=== PATIENT | female | born 1980 | race Caucasian/White ===

== ENCOUNTER 2017-05-13 18:46 | Emergency (ER) | payer OTHER ==
[2017-05-13 18:50] VITALS: BP 115/77; PULSE 84; TEMP 98.7; BMI 23.8
[2017-05-13] MEDS ORDERED: diazePAM 5 MG TABLET PO ONE (20:40)
[2017-05-13] MEDS ORDERED: diazePAM 5 MG TABLET ONE (20:45)
--- NOTE | 2017-05-13 20:54 | PDOC ---
History of Present Illness - General Chief Complaint: Pain, Acute Stated Complaint: NECK PAIN Time Seen by Provider: 05/13/17 20:25 History Source: Patient Exam Limitations: No Limitations - History of Present Illness Initial Comments: 05/13/17 20:47 This is a 36yo woman with PMH of breast augmentation who presents today with right lateral neck pain x4 days. She states she awoke with the pain on the morning of 05/09. She denies trauma, fevers, headaches, photophobia, changes in vision, nausea or vomiting. PMD- none PMH- denies PSH- liposuction, breast augmentation Occupation- none Pain: P-right lateral neck Q- pulling R- no radiation S- 05/21 T- 4 days Occurred: reports: other (4 days) Pain Location: reports: neck Method of Injury: Yes: unknown Past History - Travel Traveled outside of the country in the last 30 days: No Close contact w/someone who was outside of country & ill: No - Past Medical History Allergies/Adverse Reactions: Allergies Allergy/AdvReac Type Severity Reaction Status Date / Time No Known Allergies Allergy Verified 05/13/17 18:50 Home Medications: Ambulatory Orders Acetaminophen [Tylenol] 325 mg PO ASDIR 05/13/17 Other medical history: denies - Surgical History Abdominal Surgery: Yes (liposuction) - Psycho/Social/Smoking Cessation Hx Suicidal Ideation: No Smoking History: Never smoked Review of Systems - Review of Systems Able to Perform ROS?: Yes Is the patient limited Sinhala proficient: No Constitutional: No: Symptoms Reported HEENTM: No: Symptoms Reported Respiratory: No: Symptoms reported Cardiac (ROS): No: Symptoms Reported ABD/GI: No: Symptoms Reported : No: Symptoms Reported Musculoskeletal: Yes: Neck Pain (right lateral) Integumentary: No: Symptoms Reported Neurological: No: Symptoms reported *Physical Exam - Vital Signs Last Vital Signs Temp Pulse Resp BP Pulse Ox 98.7 F 84 18 115/77 99 05/13/17 18:48 05/13/17 18:48 05/13/17 18:48 05/13/17 18:48 05/13/17 18:48 - Physical Exam General Appearance: Yes: Appropriately Dressed. No: Apparent Distress HEENT: positive: EOMI, JOE, Normal ENT Inspection Neck: positive: Trachea midline, Tender lateral (right). negative: Lymphadenopathy (R), Lymphadenopathy (L) Respiratory/Chest: positive: Lungs Clear, Normal Breath Sounds. negative: Respiratory Distress, Accessory Muscle Use Cardiovascular: positive: Regular Rhythm, Regular Rate, S1, S2. negative: Edema , JVD, Murmur Gastrointestinal/Abdominal: positive: Normal Bowel Sounds, Soft. negative: Tender, Organomegaly Musculoskeletal: positive: Normal Inspection. 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 She states she awoke with the pain on the morning of 05/09. She denies trauma, fevers, headaches, photophobia, changes in vision, nausea or vomiting. Full ROM of neck. EOMI. PERRLA, CN ii-xii intact. FROM of right shoulder. Denies numbness and tingling to right arm. P: cervical strain - valium 5mg PO - reassess 05/13/17 22:18 feels relief after valium. will discharge to home *DC/Admit/Observation/Transfer Diagnosis at time of Disposition: Cervical strain Qualifiers: Encounter type: initial encounter Qualified Code(s): S16.1XXA - Strain of muscle, fascia and tendon at neck level, initial encounter - Discharge Dispostion Disposition: HOME Condition at time of disposition: Stable Admit: No - Patient Instructions Printed Discharge Instructions: DI for Cervical Muscle Strain Additional Instructions: Take motrin for pain as directed by case folder's instructions. Apply warm, moist heat affected areas for 20 minutes at a time. Return to ER for numbness and tingling to hands, inability to move hands, or any other concerns. - Post Discharge Activity Work/School Note: Back to Work
== END 2017-05-13 22:44 | disposition home or self-care (01) ==
LOC: JERFT 18:46
DX: S16.1XXA Strain of muscle, fascia and tendon at neck level, initial encounter (principal); X50.1XXA Overexertion from prolonged static or awkward postures, initial encounter; Y93.89 Activity, other specified; Y92.032 Bedroom in apartment as the place of occurrence of the external cause
CPT/HCPCS: 99281-25

== ENCOUNTER 2019-10-19 16:09 | Emergency (ER) | payer OTHER ==
[2019-10-19 16:31] VITALS: BP 103/51; PULSE 75; TEMP 98.1; BMI 24.2
[2019-10-19] MEDS ORDERED: predniSONE 20 MG TABLET (UD) PO ONE (17:12)
[2019-10-19] MEDS ORDERED: CYCLOBENZAPRINE HCL 10 MG TABLET (FP) PO ONE (17:12)
--- NOTE | 2019-10-19 17:18 | PDOC ---
History of Present Illness - General Chief Complaint: Back Pain Stated Complaint: PAIN/LWR BACK AND LEG Time Seen by Provider: 10/19/19 17:03 History Source: Patient Exam Limitations: No Limitations - History of Present Illness Initial Comments: 10/19/19 17:14 Patient is a 39-year-old female who presents to the ED with 2 weeks of low back pain primarily left-sided. She states that the pain is in her left buttocks radiates down her entire left leg. She has had some numbness intermittently in her left lower extremity. The patient had a fall 2 years ago and has had intermittent back pain since then. She never followed up with an orthopedist. She did do physical therapy with relief of her pain. She has been taking Tylenol and ibuprofen with little relief. The ibuprofen was last taken at about 2 PM without much relief. Past History - Past Medical History Allergies/Adverse Reactions: Allergies Allergy/AdvReac Type Severity Reaction Status Date / Time No Known Allergies Allergy Verified 10/19/19 16:25 Home Medications: Ambulatory Orders Ibuprofen [Motrin -] 600 mg PO TID PRN 10/19/19 Methylprednisolone [Medrol Dose Raymundo] 4 mg PO ASDIR #21 tablet 10/19/19 Oxycodone HCl/Acetaminophen [Percocet 5-325 mg Tablet] 1 tab PO Q6H PRN 3 Days # 12 tablet MDD 4 10/19/19 COPD: No Other medical history: diff w/ BMs by hx - Surgical History Abdominal Surgery: Yes (liposuction) - Psycho Social/Smoking Cessation Hx Smoking History: Never smoked Review of Systems - Review of Systems Comments:: 10/19/19 17:15 - Review of Systems Able to Perform ROS?: Yes Constitutional: No: Fever, Chills, Loss of Appetite, Night Sweats, Weakness HEENTM: No: Eye Pain, Vision changes, Ear Pain, Throat Pain, Throat Swelling, Mouth Pain, Difficulty Swallowing Respiratory: No: Cough, Shortness of Breath, Wheezing, Sputum Production Cardiac (ROS): No: Chest Pain, Chest Tightness, Palpitations, Irregular Heart Beat, Edema ABD/GI: No: Nausea, Vomiting, Abdominal Pain, Diarrhea : No Dysuria, No Hematuria, No Frequency, No Urgency, No Vaginal Discharge/ Pain Musculoskeletal: No: Muscle Pain, , Joint Pain, Muscle Weakness, Neck Pain; Positive: Back Pain, + radiculopathy Integumentary: No: Lesions, Rash Neurological: No: Headache, Numbness, Tingling, Weakness, Speech Difficulties *Physical Exam - Vital Signs Last Vital Signs Temp Pulse Resp BP Pulse Ox 98.1 F 75 16 103/51 L 99 10/19/19 16:30 10/19/19 16:30 10/19/19 16:30 10/19/19 16:30 10/19/19 16:30 - Physical Exam 10/19/19 17:16 - Physical Exam General Appearance: Nourished, Appropriately Dressed, No Distress HEENT: EOMI, Normal Voice, No Pharyngeal Erythema, No Muffled/Hoarse voice, No Tonsillar Exudate, No Tonsillar Erythema, No Nasal Congestion, No Rhinorrhea, Hearing Grossly Normal, TMs Normal, No TM Bulging, No TM Dullness, No TM Erythema Neck: Supple, No Lymphadenopathy (R), No Lymphadenopathy (L), No Rigidity, No Decreased range of motion Respiratory/Chest: Lungs Clear, Normal Breath Sounds. No Respiratory Distress, No Accessory Muscle Use Cardiovascular: Regular Rhythm, Regular Rate, S1, S2 Musculoskeletal: Normal Inspection. No Decreased Range of Motion; Left lumbar back pain to palpation. Buttock pain appreciated. Pain not exacerbated with external rotation of the hip. EHL intact. Sensation intact distally. 5/5 strength bilateral lower extremities. No saddle anesthesia appreciated. Extremity: Normal Capillary Refill, Normal Inspection Integumentary: Normal Color, Dry. 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 There is some disc height narrowing appreciated. No significant spondylolisthesis appreciated. Medical Decision Making - Medical Decision Making 10/19/19 17:17 Assessment: Patient is a 39-year-old female with left lower back pain and radiculopathy. Plan: -Urine -Lumbar spine x-ray -Flexeril p.o. -Prednisone p.o. -Will reassess 10/19/19 18:33 The patient has gotten no relief from prednisone and Flexeril. We will give her 1 tablet of Percocet in the ED. We will reassess her shortly. 10/19/19 19:00 Patient states that her pain is finally starting to get a little bit better. We will discharge her with 3 days of Percocet. She can follow-up with orthopedics and a referral has been given. She should get plenty of rest and drink plenty of fluids. We will also give her a prescription for a Medrol Dosepak. She will return to the ED for any worsening symptoms such as loss of bowel or bladder functions. She understands and agrees with this treatment plan and she is stable for discharge. Discharge - Discharge Information Problems reviewed: Yes Clinical Impression/Diagnosis: Low back pain with left-sided sciatica Qualifiers: Chronicity: acute Back pain laterality: left Qualified Code(s): M54.42 - Lumbago with sciatica, left side Condition: Stable Disposition: HOME - Additional Discharge Information Prescriptions: Methylprednisolone [Medrol Dose Raymundo] 4 mg PO ASDIR #21 tablet Oxycodone HCl/Acetaminophen [Percocet 5-325 mg Tablet] 1 tab PO Q6H PRN 3 Days # 12 tablet MDD 4 PRN Reason: Pain - Follow up/Referral Referrals: Abner Jordan [Primary Care Provider] - Tab Sheppard MD, [facility] [Staff Physician] - 1 week - Patient Discharge Instructions Patient Printed Discharge Instructions: DI for Low Back Pain Additional Instructions: Get plenty of rest. Be sure to take the medications only as needed and as prescribed. Follow-up with the back surgeon within 1 week for repeat evaluation. Avoid any strenuous activity or heavy lifting. Return for worsening back pain, change in your bowel or bladder habits, or any other worsening symptoms. - Post Discharge Activity Work/Back to School Note: Back to Work
[2019-10-19] MEDS ORDERED: predniSONE 20 MG TABLET (UD) ONE (17:19)
[2019-10-19] MEDS ORDERED: CYCLOBENZAPRINE HCL 10 MG TABLET (FP) ONE (17:19)
== END 2019-10-19 19:20 | disposition home or self-care (01) ==
LOC: JERFT 16:09
DX: M54.42 Lumbago with sciatica, left side (principal)
CPT/HCPCS: 72100-TC-FY; 84703; 99281-25